=== PATIENT | female | born 1960 ===

== ENCOUNTER 2019-03-18 14:29 | Observation (INO) | payer OTHER ==
[2019-03-18] MEDS ORDERED: NITROGLYCERIN 0.4 MG TAB SL ONE (14:39)
[2019-03-18] MEDS ORDERED: ASPIRIN 81 MG CHEWABLE CTB ONE (14:40)
[2019-03-18] MEDS ORDERED: ASPIRIN 81 MG CHEWABLE CTB PO STA (14:42)
[2019-03-18] MEDS ORDERED: SODIUM CHLORIDE 0.9% FLUSH 10 ML SOL IV PRN (14:44)
[2019-03-18] MEDS: NITROGLYCERIN 0.4 MG TAB SL PRN ×2 (14:44→15:14)
[2019-03-18 14:59] LABS: BASOPHILS % (AUTO) 1 % (0-3); EOSINOPHILS % (AUTO) 6 % (0-9); HEMATOCRIT 41 % (35-47); LYMPHOCYTES % (AUTO) 33.9 % (10-50); MEAN CORPUSCULAR HEMOGLOBIN 30.9 pg (27.0-32.0); MEAN CORPUSCULAR HGB CONC 33.9 gm/dl (32.0-36.0); MEAN CORPUSCULAR VOLUME 91 fL (81-99); MONOCYTES % (AUTO) 7.3 % (0-12); NEUTROPHILS % (AUTO) 51.6 % (37-80)
[2019-03-18 15:18] LABS: INR 1.04 (0.86-1.12)
[2019-03-18 15:23] LABS: CALCIUM 8.8 mg/dl (8.5-10.1); CREATININE 0.73 mg/dl (0.60-1.00); POTASSIUM 3.9 mMol/L (3.5-5.1); TROP I 0.047 ng/ml (0.000-0.056)
[2019-03-18] MEDS ORDERED: SODIUM CHLORIDE 0.9% 1000ML 1,000 ML IV ONE (15:46)
[2019-03-18 20:03] VITALS: BP 166/89; PULSE 72; RESP 20; TEMP 97.9; O2SAT 97
== END 2019-03-18 21:08 | disposition short-term general hospital (02) | DRG 313 ==
LOC: ED 14:29 → ACUTE CARE 16:05 → UNDOADMOB 16:06 → ACUTE CARE 16:06
PROVIDERS: ADMIT Family Medicine; ATTEND Family Medicine
DX: R07.9 Chest pain, unspecified (principal); R73.9 Hyperglycemia, unspecified; R53.83 Other fatigue; R73.09 Other abnormal glucose; R79.89 Other specified abnormal findings of blood chemistry; E11.65 Type 2 diabetes mellitus with hyperglycemia
CPT/HCPCS: 71045; 80048; 82962; 83036; 84484; 85025; 85610; 85730; 93005; 93012; 99284; A9270-GY

== ENCOUNTER 2019-04-02 09:19 | Outpatient (CLI) | payer OTHER | END 2019-04-02 09:20 | disposition home or self-care (01) | LOC: CONVCARE 09:19 ==